=== PATIENT | female | born 2000 | race Caucasian/White ===

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

== ENCOUNTER 2018-09-22 10:03 | Emergency (ER) | payer OTHER ==
--- NOTE | 2018-09-22 11:34 | CT ---
EXAMINATION TYPE: CT brain wo con DATE OF EXAM: 09/22/2018 COMPARISON: NONE HISTORY: Syncopal episode CT DLP: 983.4 mGycm. Automated Exposure Control for Dose Reduction was Utilized. TECHNIQUE: CT scan of the head is performed without contrast. FINDINGS: There is no acute intracranial hemorrhage, mass effect, or midline shift identified. The ventricles and sulci are within normal limits in size. The globes are intact. Mild mucosal thickeni ng is seen in the maxillary sinuses. Polypoid mucosal thickening is also noted within the sphenoid si nus. There is a 1.2 cm left mucosal retention cyst versus polyp. Remaining paranasal sinuses and mast oid air cells are well aerated. IMPRESSION: 1. No acute intracranial hemorrhage, mass effect, or midline shift is seen. 2. Mild paranasal sinus disease with 1.2 cm left maxillary mucosal retention cyst versus polyp.
[2018-09-22 12:09] LABS: Basophils % (A) 1 %; Eosinophils # (A) 0.1 k/uL (0-0.7); Eosinophils % (A) 1 %; HCT 45.1 % (34.0-46.0); Lymphocytes # (A) 1.4 k/uL (1.0-4.8); Lymphocytes % (A) 18 %; MCH 30.5 pg (25.0-35.0); MCHC 33.2 g/dL (31.0-37.0); MCV 91.9 fL (80.0-100.0); Mean Platelet Volume 7.7; Monocytes # (A) 0.3 k/uL (0-1.0); Monocytes % (A) 3 %; Neutrophils # (A) 6.1 k/uL (1.3-7.7); Neutrophils % (A) 77 %; Platelet Count 266 k/uL (150-450); RBC 4.91 m/uL (3.80-5.40); RDW 12.3 % (11.5-15.5)
--- NOTE | 2018-09-22 12:12 | XR ---
EXAMINATION TYPE: XR chest 2V DATE OF EXAM: 09/22/2018 COMPARISON: NONE HISTORY: Syncopal episode. TECHNIQUE: Frontal and lateral views of the chest are obtained. FINDINGS: There is no focal air space opacity, pleural effusion, or pneumothorax seen. The cardiac silhouette size is within normal limits. The osseous structures are intact. IMPRESSION: No acute cardiopulmonary process.
[2018-09-22 12:15] LABS: ALT 22 U/L (9-52); AST 13 U/L (14-36); Albumin 4.1 g/dL (3.5-5.0); Alkaline Phosphatase 58 U/L (38-126); Anion Gap 9 mmol/L; Blood Urea Nitrogen 18 mg/dL (7-17); Calcium 9.7 mg/dL (8.4-10.2); Carbon Dioxide 24 mmol/L (22-30); Chloride 108 mmol/L (98-107); Glucose 92 mg/dL (74-99); Potassium 4.2 mmol/L (3.5-5.1); Sodium 141 mmol/L (137-145); Total Bilirubin 0.4 mg/dL (0.2-1.3); Total Protein 7.2 g/dL (6.3-8.2)
[2018-09-22 12:58] VITALS: RESP 18
--- NOTE | 2018-09-22 13:05 | ED ---
Syncope HPI - General Chief Complaint: Syncope Stated Complaint: syncope, head injury Time Seen by Provider: 09/22/18 11:01 Source: patient Mode of arrival: ambulatory Limitations: no limitations - History of Present Illness Initial Comments: 18-year-old female past medical history of panic disorder presenting today for chief complaint of syncope. Patient states that around 2 AM last night she got up to use the restroom, she felt dizzy as though she was going to pass out, she was warm and dizzy. Pt denies chest pain, shortness of breath. She states she woke up on the floor and had urinated herself. Patient states that she went to go back to bed when she has another episode where she felt like passing out, "light headed" then she woke up on floor. Pt states that she has episodes of this in the past and was to have neurological f/u. Pt was last seen for these episodes in March at [facility] where she was told she has benign positional vertigo. Pt does admit today of dizziness when she moves changes position. Pt does state that she hasnt been drinking as much, water and had decreased appetite- she has felt increased anxiety stating she has panic disorder. Currently pt denies any headedness, dizziness or chest pain, shortness of breath, headache, confusion, visual changes, palpitations, neck pain, ataxia, speech changes hearing changes, hearing loss, hematochezia, melena , fever, chills, photophobia. Pt appears well. VS upon arrival pt HR elevated, repeat HR 69bpm. - Related Data Home Medications Medication Instructions Recorded Confirmed diphenhydrAMINE [Benadryl] 25 mg PO QID PRN 09/22/18 09/22/18 guaiFENesin [Mucinex] 600 mg PO Q12H PRN 09/22/18 09/22/18 Allergies Allergy/AdvReac Type Severity Reaction Status Date / Time shellfish derived [Shellfish] Allergy Unknown Verified 09/22/18 10:42 methylprednisolone AdvReac Nausea & Verified 09/22/18 10:42 [From Medrol] Vomiting Review of Systems ROS Statement: Those systems with pertinent positive or pertinent negative responses have been documented in the HPI. ROS Other: All systems not noted in ROS Statement are negative. Constitutional: Denies: fever, chills, night sweats Eyes: Denies: vision change ENT: Denies: hearing loss Respiratory: Denies: cough, dyspnea, wheezes, hemoptysis, stridor Cardiovascular: Reports: syncope. Denies: chest pain, palpitations, dyspnea on exertion, edema Endocrine: Denies: fatigue Gastrointestinal: Denies: abdominal pain, nausea, vomiting, diarrhea, constipation, hematemesis, melena, hematochezia Genitourinary: Denies: urgency, dysuria, frequency Musculoskeletal: Denies: back pain Skin: Denies: rash, lesions Neurological: Reports: weakness, vertigo. Denies: headache, numbness, paresthesias, confusion Past Medical History Past Medical History: Asthma History of Any Multi-Drug Resistant Organisms: None Reported Additional Past Surgical History / Comment(s): ear tubes, wisdom teeth extraction Past Psychological History: Anxiety, Depression, PTSD Smoking Status: Former smoker Past Alcohol Use History: None Reported Past Drug Use History: None Reported - Past Family History Father Family Medical History: Cancer, Thyroid Disorder Additional Family Medical History / Comment(s): Father is alive at age 45 with history of testicular cancer and thyroid problems. Mother Additional Family Medical History / Comment(s): Mother is alive at age 38 with no major medical problems. Sister(s) Additional Family Medical History / Comment(s): She has 2 sisters with no major medical problems. Patient has one half-brother with no major medical problems. General Exam - General Exam Comments Initial Comments: General: The patient is awake and alert, in no distress, and does not appear acutely ill. Eye: Pupils are equal, round and reactive to light, extra-ocular movements are intact. No nystagmus. There is normal conjunctiva bilaterally. No signs of icterus. Ears, nose, mouth and throat: There are dry mucous membranes and no oral lesions. Neck: The neck is supple, there is no tenderness or JVD. Cardiovascular: There is a regular rate and rhythm. No murmur, rub or gallop is appreciated. Respiratory: Lungs are clear to auscultation, respirations are non-labored, breath sounds are equal. No wheezes, stridor, rales, or rhonchi. Gastrointestinal: Soft, non-distended, non-tender abdomen without masses or organomegaly noted. There is no rebound or guarding present. No CVA tenderness. Bowel sounds are unremarkable. Musculoskeletal: Normal ROM, no tenderness. Strength 5/5. Sensation intact. Radial pulses equal bilaterally 2+. Skin tugor delayed recoil Neurological: A&O x 3. CN II-XII intact, There are no obvious motor or sensory deficits. Coordination appears grossly intact. Speech is normal. Skin: Skin is warm and dry and no rashes or lesions are noted. Psychiatric: Cooperative, appropriate mood & affect, normal judgment. Limitations: no limitations Course Vital Signs 09/22/18 09/22/18 09/22/18 10:12 11:30 12:56 Temperature 98.1 F Pulse Rate 113 H 83 96 Pulse Rate [ Sitting] Pulse Rate [ Standing] Pulse Rate [ Supine] Respiratory 18 20 18 Rate Blood Pressure 118/82 114/79 127/80 Blood Pressure [Sitting] Blood Pressure [Standing] Blood Pressure [Supine] O2 Sat by Pulse 99 96 98 Oximetry 09/22/18 09/22/18 09/22/18 13:18 14:36 14:40 Temperature 98.3 F 98.1 F Pulse Rate 91 78 Pulse Rate [ 85 Sitting] Pulse Rate [ 110 H Standing] Pulse Rate [ 82 Supine] Respiratory 18 18 18 Rate Blood Pressure 124/75 116/78 Blood Pressure 124/97 [Sitting] Blood Pressure 120/91 [Standing] Blood Pressure 119/72 [Supine] O2 Sat by Pulse 98 98 Oximetry EKG Findings - EKG Comments: EKG Findings:: Ventricular rate 69 beats regular ME interval 130 ms QRS 90 ms QT /QTC 376/42 ms this is normal sinus EKG. Reviewd by myself and Dr. Rubin. Medical Decision Making - Medical Decision Making Given history of fall with possible head injury CT obtained (-) Labs revealed mildly elevated BUN, ketones in urine. Glucose WNL. Upon reevaluatino and further questioning pt states that she hasnt been drinking that much lately, decreased appetite. EKG WNL reviewed by myself and Dr. Rubin. Orthostatics ( +) for 20 increase BPM. Urine HCG (-). At this time I feel pt syncope likely due to hypovolemia from decreased fluid intake. Pt was given 1L bolus. Pt was instructed to f/u with primary care outpatient for further cardiology evaluation. Pt agrees with plan. Patient denies questions at this time can parameters discussed in detail. Patient agrees the plan. Patient discharged in stable condition. - Lab Data Result diagrams: 09/22/18 11:48 09/22/18 11:48 Lab Results 09/22/18 09/22/18 09/22/18 Range/Units 11:48 11:48 13:10 WBC 8.0 (4.0-11.0) k/uL RBC 4.91 (3.80-5.40) m/uL Hgb 15.0 (11.4-16.0) gm/dL Hct 45.1 (34.0-46.0) % MCV 91.9 (80.0-100.0) fL MCH 30.5 (25.0-35.0) pg MCHC 33.2 (31.0-37.0) g/dL RDW 12.3 (11.5-15.5) % Plt Count 266 (150-450) k/uL Neutrophils % 77 % Lymphocytes % 18 % Monocytes % 3 % Eosinophils % 1 % Basophils % 1 % Neutrophils # 6.1 (1.3-7.7) k/uL Lymphocytes # 1.4 (1.0-4.8) k/uL Monocytes # 0.3 (0-1.0) k/uL Eosinophils # 0.1 (0-0.7) k/uL Basophils # 0.0 (0-0.2) k/uL Sodium 141 (137-145) mmol/L Potassium 4.2 (3.5-5.1) mmol/L Chloride 108 H (98-107) mmol/L Carbon Dioxide 24 (22-30) mmol/L Anion Gap 9 mmol/L BUN 18 H (7-17) mg/dL Creatinine 0.60 (0.52-1.04) mg/dL Est GFR (CKD-EPI)AfAm >90 (>60 ml/min/1.73 sqM) Est GFR (CKD-EPI)NonAf >90 (>60 ml/min/1.73 sqM) Glucose 92 (74-99) mg/dL Calcium 9.7 (8.4-10.2) mg/dL Total Bilirubin 0.4 (0.2-1.3) mg/dL AST 13 L (14-36) U/L ALT 22 (9-52) U/L Alkaline Phosphatase 58 (38-126) U/L Total Protein 7.2 (6.3-8.2) g/dL Albumin 4.1 (3.5-5.0) g/dL Urine Color Urine Appearance (Clear) Urine pH (5.0-8.0) Ur Specific [place] (1.001-1.035) Urine Protein (Negative) Urine Glucose (UA) (Negative) Urine Ketones (Negative) Urine Blood (Negative) Urine Nitrite (Negative) Urine Bilirubin (Negative) Urine Urobilinogen (<2.0) mg/dL Ur Leukocyte Esterase (Negative) Urine RBC (0-5) /hpf Urine WBC (0-5) /hpf Ur Squamous Epith Cells (0-4) /hpf Urine Mucus (None) /hpf Urine HCG, Qual Not Detected (Not Detectd) 09/22/18 Range/Units 13:10 WBC (4.0-11.0) k/uL RBC (3.80-5.40) m/uL Hgb (11.4-16.0) gm/dL Hct (34.0-46.0) % MCV (80.0-100.0) fL MCH (25.0-35.0) pg MCHC (31.0-37.0) g/dL RDW (11.5-15.5) % Plt Count (150-450) k/uL Neutrophils % % Lymphocytes % % Monocytes % % Eosinophils % % Basophils % % Neutrophils # (1.3-7.7) k/uL Lymphocytes # (1.0-4.8) k/uL Monocytes # (0-1.0) k/uL Eosinophils # (0-0.7) k/uL Basophils # (0-0.2) k/uL Sodium (137-145) mmol/L Potassium (3.5-5.1) mmol/L Chloride (98-107) mmol/L Carbon Dioxide (22-30) mmol/L Anion Gap mmol/L BUN (7-17) mg/dL Creatinine (0.52-1.04) mg/dL Est GFR (CKD-EPI)AfAm (>60 ml/min/1.73 sqM) Est GFR (CKD-EPI)NonAf (>60 ml/min/1.73 sqM) Glucose (74-99) mg/dL Calcium (8.4-10.2) mg/dL Total Bilirubin (0.2-1.3) mg/dL AST (14-36) U/L ALT (9-52) U/L Alkaline Phosphatase (38-126) U/L Total Protein (6.3-8.2) g/dL Albumin (3.5-5.0) g/dL Urine Color Yellow Urine Appearance Clear (Clear) Urine pH 6.0 (5.0-8.0) Ur Specific [place] 1.027 (1.001-1.035) Urine Protein Trace H (Negative) Urine Glucose (UA) Negative (Negative) Urine Ketones 3+ H (Negative) Urine Blood Small H (Negative) Urine Nitrite Negative (Negative) Urine Bilirubin Negative (Negative) Urine Urobilinogen 2.0 (<2.0) mg/dL Ur Leukocyte Esterase Negative (Negative) Urine RBC 2 (0-5) /hpf Urine WBC 2 (0-5) /hpf Ur Squamous Epith Cells 3 (0-4) /hpf Urine Mucus Many H (None) /hpf Urine HCG, Qual (Not Detectd) Disposition Clinical Impression: Syncope Disposition: HOME SELF-CARE Condition: Good Instructions: Syncope (ED) Additional Instructions: Please use medication as discussed. Please follow-up with family doctor in the next 2 days for cardiology/neurology referral. Please return to emergency room if the symptoms increase or worsen or for any other concerns. Is patient prescribed a controlled substance at d/c from ED?: No Referrals: None,Stated [Primary Care Provider] - 1-2 days Time of Disposition: 13:48
[2018-09-22 13:32] LABS: Appearance,Urine Clear (Clear); Bilirubin,Urine Negative (Negative); Blood,Urine Small (Negative); Color,Urine Yellow; Glucose,Urine (UA) Negative (Negative); Ketones,Urine 3+ (Negative); Leukocyte Esterase,Urine Negative (Negative); Mucus,Urine Many /hpf; Nitrite,Urine Negative (Negative); Protein,Urine Trace (Negative); RBC,Urine 2 /hpf (0-5); Specific Gravity,Urine 1.027 (1.001-1.035); Squamous Epithelial Cell,Urine 3 /hpf (0-4); WBC,Urine 2 /hpf (0-5)
[2018-09-22] MEDS ORDERED: SODIUM CHLORIDE 0.9% 1,000 ML IV ONE (13:50)
[2018-09-22 14:41] VITALS: BP 116/78; PULSE 78; TEMP 98.1
== END 2018-09-22 15:04 | disposition home or self-care (01) ==
LOC: EC 10:03
DX: R55 Syncope and collapse (principal); Z91.013 Allergy to seafood; Z88.8 Allergy status to other drugs, medicaments and biological substances; Z87.891 Personal history of nicotine dependence
CPT/HCPCS: 36415; 70450; 71046; 80053; 81001; 81025; 85025; 93005; 96360; 99284

== ENCOUNTER 2019-10-26 18:49 | Emergency (ER) | payer OTHER ==
[2019-10-26 19:00] VITALS: TEMP 98
[2019-10-26] MEDS ORDERED: SODIUM CHLORIDE 0.9% 500 ML 500 ML IV STA (20:04)
--- NOTE | 2019-10-26 20:20 | ED ---
Chest Pain HPI - General Chief Complaint: Chest Pain Stated Complaint: headache, epistaxis Time Seen by Provider: 10/26/19 19:54 Source: patient Mode of arrival: ambulatory Limitations: no limitations - History of Present Illness Initial Comments: 19-year-old female patient presents to the emergency department today for evaluation of chest pain. Patient states that chest pain started last evening. States it is substernal and radiates to both shoulders. She is reporting shortness of breath with this. States that this started after she noticed her blood pressure was elevated had a bloody nose at work last night. Patient states she has also been having flashes in her vision and migraine headaches. Patient states that when she expresses a flashes she will generally get a headache shortly afterwards. Patient denies any current headache. Denies any blurry or double vision. States she has had having intermittent dizziness. States she was checking her blood pressure work last evening and it was elevated and 49 systolic. She denies any numbness or tingling to her extremities. Denies any chance of but does not take control. Denies any recent travel. Denies any calf tenderness or swelling. Patient denies any recent rash, fever, chills, abdominal pain, nausea, vomiting, diarrhea, constipation, back pain, hematuria, dysuria, urinary urgency, urinary frequency, or any other complaints. - Related Data Home Medications Medication Instructions Recorded Confirmed diphenhydrAMINE [Benadryl] 25 mg PO QID PRN 09/22/18 09/22/18 guaiFENesin [Mucinex] 600 mg PO Q12H PRN 09/22/18 09/22/18 Previous Rx's Medication Instructions Recorded lamoTRIgine [LaMICtal] 50 mg PO BID #15 tab 10/26/19 Allergies Allergy/AdvReac Type Severity Reaction Status Date / Time shellfish derived [Shellfish] Allergy Unknown Verified 10/26/19 19:00 methylprednisolone AdvReac Nausea & Verified 10/26/19 19:00 [From Medrol] Vomiting Review of Systems ROS Statement: Those systems with pertinent positive or pertinent negative responses have been documented in the HPI. ROS Other: All systems not noted in ROS Statement are negative. EKG Findings - EKG Comments: EKG Findings:: EKG obtained in 190 shows normal sinus rhythm with a ventricular rate of 93, IN interval 138, QR episcopalian 90, QT 334, QTC 4:15. No evidence of ST elevation or depression. Past Medical History Past Medical History: Asthma History of Any Multi-Drug Resistant Organisms: None Reported Past Surgical History: Ear Surgery Additional Past Surgical History / Comment(s): ear tubes, wisdom teeth extracti on Past Psychological History: Anxiety, Depression, PTSD Smoking Status: Former smoker Past Alcohol Use History: None Reported Past Drug Use History: None Reported - Past Family History Father Family Medical History: Cancer, Thyroid Disorder Additional Family Medical History / Comment(s): Father is alive at age 45 with history of testicular cancer and thyroid problems. Mother Additional Family Medical History / Comment(s): Mother is alive at age 38 with no major medical problems. Sister(s) Additional Family Medical History / Comment(s): She has 2 sisters with no major medical problems. Patient has one half-brother with no major medical problems. General Exam Limitations: no limitations General appearance: alert, in no apparent distress, other (This is a well- developed, well-nourished adult female patient in no acute distress. Vital signs upon presentation are temperature 98.0 degrees Fahrenheit, pulse 92, respirations 20, blood pressure 125/84, pulse ox 97% on room air.) Eye exam: Present: normal appearance, PERRL, EOMI. Absent: scleral icterus, co njunctival injection, nystagmus, periorbital swelling ENT exam: Present: normal exam, normal oropharynx, mucous membranes moist Respiratory exam: Present: normal lung sounds bilaterally. Absent: respiratory distress, wheezes, rales, rhonchi, stridor Cardiovascular Exam: Present: regular rate, normal rhythm, normal heart sounds. Absent: systolic murmur, diastolic murmur, rubs, gallop, clicks GI/Abdominal exam: Present: soft, normal bowel sounds. Absent: distended, tenderness, guarding, rebound, rigid Neurological exam: Present: alert, oriented X3, CN II-XII intact, other (Strength in all 4 extremities is 5/5.) Psychiatric exam: Present: normal affect, normal mood Skin exam: Present: warm, dry, intact, normal color. Absent: rash Course Vital Signs 10/26/19 18:58 Temperature 98.0 F Pulse Rate 92 Respiratory 20 Rate Blood Pressure 125/84 O2 Sat by Pulse 97 Oximetry Chest Pain [facility] Radiology:Two-view x-ray of the chest is obtained. Report was reviewed in its entirety. Impression by Dr. Hernandez shows normal chest. No change. MDM: 19-year-old female patient presents to the emergency department today for evaluation of chest pain. Patient is also reporting headaches with flashing in her vision quite frequently over the last several weeks. Physical examination is unremarkable. She is neurologically intact deficits. Lungs are clear to auscultation with good air movement. EKG showed normal sinus rhythm. Chest x- ray shows no acute cardio pulmonary process. Labs reviewed and are unremarkable. D-dimer negative. Troponin negative. I did discuss findings and results with the patient. Symptoms are consistent with migraine with. Chest pain could be related to anxiety as she did stop taking her Lamictal recently. She is instructed to follow-up with her primary care physician for recheck in 1- 2 days. She'll be given a prescription for Lamictal until she is able to see her doctor. Return parameters were discussed in detail. She verbalizes understanding and agrees with this plan Disposition Clinical Impression: Migraine with aura, Chest pain Disposition: HOME SELF-CARE Condition: Good Instructions (If sedation given, give patient instructions): Chest Pain (ED), Migraine Headache (ED) Additional Instructions: Increase fluids. Rest. Follow up with her primary care physician for recheck as soon as possible. Return to the emergency department immediately for any new, worsening, or concerning symptoms. Prescriptions: lamoTRIgine [LaMICtal] 50 mg PO BID #15 tab Is patient prescribed a controlled substance at d/c from ED?: No Referrals: None,Stated [Primary Care Provider] - 1-2 days Time of Disposition: 22:26
[2019-10-26 20:33] LABS: Basophils # (A) 0.1 k/uL (0-0.2); Basophils % (A) 1 %; Eosinophils # (A) 0.1 k/uL (0-0.7); Eosinophils % (A) 3 %; HCT 41.9 % (34.0-46.0); HGB 14.2 gm/dL (11.4-16.0); Lymphocytes % (A) 36 %; MCH 31.5 pg (25.0-35.0); MCHC 33.8 g/dL (31.0-37.0); MCV 93.2 fL (80.0-100.0); Mean Platelet Volume 7.5; Monocytes # (A) 0.3 k/uL (0-1.0); Monocytes % (A) 5 %; Neutrophils # (A) 2.8 k/uL (1.3-7.7); Neutrophils % (A) 52 %; Platelet Count 249 k/uL (150-450); RBC 4.49 m/uL (3.80-5.40); RDW 11.8 % (11.5-15.5); WBC 5.5 k/uL (3.8-10.6)
[2019-10-26 20:42] LABS: ALT 11 U/L (9-52); AST 19 U/L (14-36); African American GFR (CKD) >90 (>60 ml/min/1.73 sqM); Albumin 4.2 g/dL (3.5-5.0); Alkaline Phosphatase 48 U/L (38-126); Anion Gap 5 mmol/L; Blood Urea Nitrogen 15 mg/dL (7-17); Calcium 9.4 mg/dL (8.4-10.2); Carbon Dioxide 26 mmol/L (22-30); Chloride 107 mmol/L (98-107); Glucose 170 mg/dL (74-99); Non-African American GFR(CKD) >90 (>60 ml/min/1.73 sqM); Potassium 3.7 mmol/L (3.5-5.1); Sodium 138 mmol/L (137-145); Total Bilirubin 0.4 mg/dL (0.2-1.3)
--- NOTE | 2019-10-26 20:46 | XR ---
EXAMINATION TYPE: XR chest 2V DATE OF EXAM: 10/26/2019 COMPARISON: 09/22/2018 HISTORY: Chest pain TECHNIQUE: Frontal and lateral views of the chest are obtained. FINDINGS: Heart and mediastinum are normal. Lungs are clear. Diaphragm is normal. Bony thorax appear s normal. IMPRESSION: Normal chest. No change.
[2019-10-26 20:47] LABS: D-Dimer <0.17 mg/L FEU (<0.60); Partial Thromboplastin Time 27.8 sec (22.0-30.0); Prothrombin Time 10.7 sec (9.0-12.0)
[2019-10-26 22:38] VITALS: BP 113/81; PULSE 91; RESP 16
== END 2019-10-26 22:38 | disposition home or self-care (01) ==
LOC: EC 18:49
DX: G43.109 Migraine with aura, not intractable, without status migrainosus (principal); R07.9 Chest pain, unspecified; Z88.8 Allergy status to other drugs, medicaments and biological substances; Z91.013 Allergy to seafood; Z87.891 Personal history of nicotine dependence
CPT/HCPCS: 36415; 71046; 80053; 81025; 83735; 84484; 85025; 85379; 85610; 85730; 93005; 99285

== ENCOUNTER 2020-09-30 01:02 | Emergency (ER) | payer OTHER ==
[2020-09-30 01:21] VITALS: RESP 16
[2020-09-30] MEDS ORDERED: SODIUM CHLORIDE 0.9% 500 ML 500 ML IV ONE (01:48)
[2020-09-30] MEDS ORDERED: METOCLOPRAMIDE 5 MG/ML 2 ML VIAL IVP STA (01:48)
[2020-09-30 02:52] LABS: Basophils # (A) 0.1 k/uL (0-0.2); Basophils % (A) 1 %; Eosinophils # (A) 0.2 k/uL (0-0.7); Eosinophils % (A) 3 %; HCT 41.8 % (34.0-46.0); HGB 14.2 gm/dL (11.4-16.0); Lymphocytes # (A) 2.5 k/uL (1.0-4.8); Lymphocytes % (A) 30 %; MCH 32.3 pg (25.0-35.0); MCHC 33.9 g/dL (31.0-37.0); MCV 95.4 fL (80.0-100.0); Mean Platelet Volume 8.4; Monocytes # (A) 0.4 k/uL (0-1.0); Monocytes % (A) 5 %; Neutrophils % (A) 60 %; Platelet Count 222 k/uL (150-450); RBC 4.38 m/uL (3.80-5.40); RDW 11.3 % (11.5-15.5); WBC 8.4 k/uL (3.8-10.6)
[2020-09-30 03:15] LABS: ALT 12 U/L (4-34); AST 21 U/L (14-36); African American GFR (CKD) >90 (>60 ml/min/1.73 sqM); Alkaline Phosphatase 53 U/L (38-126); Anion Gap 4 mmol/L; Blood Urea Nitrogen 15 mg/dL (7-17); Calcium 9.4 mg/dL (8.4-10.2); Carbon Dioxide 25 mmol/L (22-30); Chloride 108 mmol/L (98-107); Glucose 96 mg/dL (74-99); Non-African American GFR(CKD) >90 (>60 ml/min/1.73 sqM); Sodium 137 mmol/L (137-145); Total Bilirubin 0.3 mg/dL (0.2-1.3); Total Protein 6.8 g/dL (6.3-8.2)
[2020-09-30 03:17] LABS: Appearance,Urine Clear (Clear); Bilirubin,Urine Negative (Negative); Blood,Urine Large (Negative); Color,Urine Yellow; Glucose,Urine (UA) Negative (Negative); Ketones,Urine Negative (Negative); Leukocyte Esterase,Urine Small (Negative); Mucus,Urine Rare /hpf; Nitrite,Urine Negative (Negative); PH, Urine 5.5 (5.0-8.0); Protein,Urine Negative (Negative); RBC,Urine 113 /hpf (0-5); Specific Gravity,Urine 1.018 (1.001-1.035); Squamous Epithelial Cell,Urine 4 /hpf (0-4); Urobilinogen,Urine <2.0 mg/dL (<2.0); WBC,Urine 10 /hpf (0-5)
[2020-09-30 03:19] LABS: HCG,Qualitative Serum Not Detected
[2020-09-30 03:28] VITALS: TEMP 97.9
--- NOTE | 2020-09-30 03:30 | ED ---
General Adult HPI - General Chief complaint: Abdominal Pain Stated complaint: Poss Miscarriage Time Seen by Provider: 09/30/20 01:32 Source: patient, RN notes reviewed, old records reviewed Mode of arrival: ambulatory Limitations: no limitations - History of Present Illness Initial comments: 20-year-old female patient to ED for evaluation. Patient states that she has been trying to get is questioning she had a possible miscarriage. She reports her last muscle. Was on 09/01. She reports that today she had some cramping and then passed some blood clots. Reports that she is feeling nauseous. Reports that she's been having a small amount of vaginal bleeding. Patient did take a test yesterday which were negative. She is due for her menses in about 5 days. Systemic: Pt denies fatigue, fever/chills, rash. Pt denies weakness, night sweats, weight loss. Neuro: Pt denies headache, visual disturbances, syncope or pre-syncope. HEENT: Pt denies ocular discharge or irritation, otalgia, rhinorrhea, pharyngitis or notable lymphadenopathy. Cardiopulmonary: Pt denies chest pain, SOB, heart palpitations, dyspnea on exertion. Abdominal/GI: Pt denies abdominal pain, n/v/d. : Pt denies dysuria, burning w/ urination, frequency/urgency. Denies new onset urinary or bowel incontinence. MSK: Pt denies myalgia, loss of strength or function in extremities. Neuro: Pt denies new onset weakness, paresthesias. - Related Data Home Medications Medication Instructions Recorded Confirmed diphenhydrAMINE [Benadryl] 25 mg PO QID PRN 09/22/18 09/22/18 guaiFENesin [Mucinex] 600 mg PO Q12H PRN 09/22/18 09/22/18 Previous Rx's Medication Instructions Recorded lamoTRIgine [LaMICtal] 50 mg PO BID #15 tab 10/26/19 Allergies Allergy/AdvReac Type Severity Reaction Status Date / Time shellfish derived [Shellfish] Allergy Unknown Verified 09/30/20 01:21 methylprednisolone AdvReac Nausea & Verified 09/30/20 01:21 [From Medrol] Vomiting Review of Systems ROS Statement: Those systems with pertinent positive or pertinent negative responses have been documented in the HPI. ROS Other: All systems not noted in ROS Statement are negative. Past Medical History Past Medical History: Asthma History of Any Multi-Drug Resistant Organisms: None Reported Past Surgical History: Ear Surgery Additional Past Surgical History / Comment(s): ear tubes, wisdom teeth extraction Past Psychological History: Anxiety, Depression, PTSD Smoking Status: Never smoker Past Alcohol Use History: None Reported Past Drug Use History: None Reported - Past Family History Father Family Medical History: Cancer, Thyroid Disorder Additional Family Medical History / Comment(s): Father is alive at age 45 with history of testicular cancer and thyroid problems. Mother Additional Family Medical History / Comment(s): Mother is alive at age 38 with no major medical problems. Sister(s) Additional Family Medical History / Comment(s): She has 2 sisters with no major medical problems. Patient has one half-brother with no major medical problems. General Exam - General Exam Comments Initial Comments: Constitutional: NAD, AOX3, Pt has pleasant affect. HEENT: NC/AT, trachea midline, neck supple, no lymphadenopathy. Posterior pharyn x non erythematous, without exudates. External ears appear normal, without discharge. Mucous membranes moist. Eyes PERRLA, EOM intact. There is no scleral icterus. No pallor noted. Cardiopulmonary: RRR, no murmurs, rubs or gallops, no JVD noted. Lungs CTAB in anterior and posterior mccann. No peripheral edema. Abdominal exam: Abdomen soft and non-distended. Abdomen non-tender to palpation in all 4 quadrants. Bowel sounds active in LLQ. No hepatosplenomegaly. No ecchymosis Neuro: CN II-XII grossly intact. MSK: Full active ROM in upper and lower extremities, 5/5 stregnth. Limitations: no limitations Course Vital Signs 09/30/20 09/30/20 01:16 03:28 Temperature 100.2 F H 97.9 F Pulse Rate 81 Respiratory 16 Rate Blood Pressure 137/94 O2 Sat by Pulse 98 Oximetry Medical Decision Making - Medical Decision Making 20-year-old female patient ED for evaluation of vaginal bleeding passing some clots. Patient will signs stable, afebrile. HCG is negative here. There is some blood in the urine. Patient will be discharged outpatient follow up. Return to ED with any worsening symptoms. Csae discussed with Dr. Luna. - Lab Data Result diagrams: 09/30/20 02:08 09/30/20 02:08 Lab Results 09/30/20 09/30/20 09/30/20 Range/Units 02:08 02:08 02:08 WBC 8.4 (3.8-10.6) k/uL RBC 4.38 (3.80-5.40) m/uL Hgb 14.2 (11.4-16.0) gm/dL Hct 41.8 (34.0-46.0) % MCV 95.4 (80.0-100.0) fL MCH 32.3 (25.0-35.0) pg MCHC 33.9 (31.0-37.0) g/dL RDW 11.3 L (11.5-15.5) % Plt Count 222 (150-450) k/uL Neutrophils % 60 % Lymphocytes % 30 % Monocytes % 5 % Eosinophils % 3 % Basophils % 1 % Neutrophils # 5.0 (1.3-7.7) k/uL Lymphocytes # 2.5 (1.0-4.8) k/uL Monocytes # 0.4 (0-1.0) k/uL Eosinophils # 0.2 (0-0.7) k/uL Basophils # 0.1 (0-0.2) k/uL Sodium 137 (137-145) mmol/L Potassium 4.0 (3.5-5.1) mmol/L Chloride 108 H (98-107) mmol/L Carbon Dioxide 25 (22-30) mmol/L Anion Gap 4 mmol/L BUN 15 (7-17) mg/dL Creatinine 0.56 (0.52-1.04) mg/dL Est GFR (CKD-EPI)AfAm >90 (>60 ml/min/1.73 sqM) Est GFR (CKD-EPI)NonAf >90 (>60 ml/min/1.73 sqM) Glucose 96 (74-99) mg/dL Calcium 9.4 (8.4-10.2) mg/dL Total Bilirubin 0.3 (0.2-1.3) mg/dL AST 21 (14-36) U/L ALT 12 (4-34) U/L Alkaline Phosphatase 53 (38-126) U/L Total Protein 6.8 (6.3-8.2) g/dL Albumin 4.0 (3.5-5.0) g/dL HCG, Qual Not Detected Urine Color Yellow Urine Appearance Clear (Clear) Urine pH 5.5 (5.0-8.0) Ur Specific [place] 1.018 (1.001-1.035) Urine Protein Negative (Negative) Urine Glucose (UA) Negative (Negative) Urine Ketones Negative (Negative) Urine Blood Large H (Negative) Urine Nitrite Negative (Negative) Urine Bilirubin Negative (Negative) Urine Urobilinogen <2.0 (<2.0) mg/dL Ur Leukocyte Esterase Small H (Negative) Urine RBC 113 H (0-5) /hpf Urine WBC 10 H (0-5) /hpf Ur Squamous Epith Cells 4 (0-4) /hpf Urine Mucus Rare H (None) /hpf Disposition Clinical Impression: Dysfunctional uterine bleeding Disposition: HOME SELF-CARE Condition: Stable Instructions (If sedation given, give patient instructions): Dysfunctional Uterine Bleeding (ED) Additional Instructions: Follow up with PCP and building surveyor tomorrow. Return to ED with any worsening symptoms. Is patient prescribed a controlled substance at d/c from ED?: No Referrals: None,Stated [Primary Care Provider] - 1-2 days Antonio Rosales [STAFF PHYSICIAN] - 1-2 days
[2020-09-30 03:41] VITALS: BP 128/88; PULSE 76
== END 2020-09-30 04:20 | disposition home or self-care (01) ==
LOC: EC 01:02
DX: N93.8 Other specified abnormal uterine and vaginal bleeding (principal); R31.9 Hematuria, unspecified; R11.0 Nausea; Z88.8 Allergy status to other drugs, medicaments and biological substances; Z91.013 Allergy to seafood
CPT/HCPCS: 36415; 80053; 85025; 81001; 84703; 99284; 96374; 96361; J2765

== ENCOUNTER → 2021-12-26 | Outpatient (CLI) | payer OTHER ==
[2021-12-26 10:11] LABS: Appearance,Urine Cloudy (Clear); Bacteria,Urine Few /hpf; Bilirubin,Urine Negative (Negative); Blood,Urine Negative (Negative); Color,Urine Yellow; Glucose,Urine (UA) Negative (Negative); Ketones,Urine Negative (Negative); Leukocyte Esterase,Urine Negative (Negative); Mucus,Urine Rare /hpf; Nitrite,Urine Negative (Negative); PH, Urine 6.5 (5.0-8.0); Protein,Urine Negative (Negative); RBC,Urine <1 /hpf (0-5); Specific Gravity,Urine 1.015 (1.001-1.035); Squamous Epithelial Cell,Urine 22 /hpf (0-4); Urobilinogen,Urine <2.0 mg/dL (<2.0); WBC,Urine 1 /hpf (0-5)
[2021-12-26 14:58] LABS: Basophils # (A) 0.04 X 10*3/uL (0.00-0.10); Basophils % (A) 0.7 %; Eosinophils # (A) 0.22 X 10*3/uL (0.04-0.35); Eosinophils % (A) 4.1 %; HCT 40.6 % (37.2-46.3); HGB 13.8 g/dL (12.0-15.0); Lymphocytes # (A) 1.69 X 10*3/uL (0.90-5.00); Lymphocytes % (A) 31.1 %; MCH 31.4 pg (27.0-32.0); MCV 92.3 fL (80.0-97.0); Mean Platelet Volume 11.5 fL (9.5-12.2); Monocytes # (A) 0.37 X 10*3/uL (0.20-1.00); Monocytes % (A) 6.8 %; Neutrophils % (A) 57.1 %; Platelet Count 252 X 10*3/uL (140-440); RDW 11.7 % (11.5-14.5); WBC 5.43 X 10*3/uL (4.50-10.00)
[2021-12-26 15:15] LABS: ALT 14 U/L (8-44); AST 19 U/L (13-35); African American GFR (CKD) 158.1 (60.0-200.0); Albumin 4.4 g/dL (3.8-4.9); Albumin/Globulin Ratio 1.83 (1.60-3.17); Alkaline Phosphatase 48 U/L (41-126); Blood Urea Nitrogen 12.3 mg/dL (9.0-27.0); Calcium 9.2 mg/dL (8.7-10.3); Chloride 104 mmol/L (96-109); Creatine Kinase 85 U/L (26-186); Globulin 2.4 g/dL (1.6-3.3); Glucose 92 mg/dL (70-110); Non-African American GFR(CKD) 136.4 (60.0-200.0); Potassium 3.8 mmol/L (3.5-5.5); Sodium 137 mmol/L (135-145); Total Protein 6.8 g/dL (6.2-8.2)
[2021-12-26 16:35] LABS: Erythrocyte Sedimentation Rate 3 mm/Hr (0-20)
[2021-12-26 17:30] LABS: Chol/HDL Ratio 2.63 Ratio; LDL Cholesterol,Calculated 78.8 mg/dL (0.0-131.0); VLDL Calculation 10.98 mg/dL (5.00-40.00)
[2021-12-26 18:07] LABS: C Reactive Protein <0.30 mg/dL (0.00-0.80); HCG,Quantitative Serum <0.1 (0.0-6.0)
[2021-12-27 09:20] LABS: % Iron Saturation 53.13 (12.00-45.00); Iron 151 ug/dL (50-170); Magnesium 2.2 mg/dL (1.5-2.4); Phosphorus 2.5 mg/dL (2.4-5.1); Total Iron Binding Capacity 284 ug/dL (228-460)
== END | disposition home or self-care (01) ==
LOC: LABWHC1 09:16
PROVIDERS: ATTEND Internal Medicine
DX: Z00.00 Encounter for general adult medical examination without abnormal findings (principal); D64.9 Anemia, unspecified; I10 Essential (primary) hypertension; E87.8 Other disorders of electrolyte and fluid balance, not elsewhere classified; E78.5 Hyperlipidemia, unspecified; E03.9 Hypothyroidism, unspecified; N20.0 Calculus of kidney; E55.9 Vitamin D deficiency, unspecified
CPT/HCPCS: 36415; 80053; 80061; 81001; 82306; 82550; 83036; 83540; 83550; 83735; 84100; 84443; 84702; 85025; 85652; 86140